=== PATIENT | female | born 1995 | race Caucasian/White ===

== ENCOUNTER 2025-01-08 02:56 | Inpatient (IN) ==
[2025-01-08] MEDS ORDERED: OXYTOCIN 30 UNITS/NSS 30 UNITS/500 ML BAG IV PRN (03:48)
[2025-01-08] MEDS ORDERED: LIDOCAINE 1% LOCAL 20 ML VIAL INFIL PRN (03:48)
[2025-01-08] MEDS: LACTATED RINGER'S 1,000 ML IV PRN (04:20)
[2025-01-08] MEDS: PENICILLIN GK 6 MU in DEXTROSE 5% 250 ML IV STA (04:21)
--- NOTE | 2025-01-08 04:34 | History & Physical Report ---
Date of Service January 08, 2025 Assessment & Plan (1) SROM (spontaneous rupture of membranes): (2) GBS (group B Streptococcus carrier), +RV culture, currently : Plan 29 yo at 38 5/7 wga presents w/ SROM VSS Fetus cat 1 Labor - will allow pt to walk, may need pit if not progressing and pt agreeable GBS+, pcn ordered epidural prn Admission and Anticipated Discharge Date Admission Date: January 08, 2025 History of Present Illness Chief Complaint: lof Primary Care Provider: Paris Padilla MD 29 yo at 38 5/7 wga presents w/ LOF since 1230 am. 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 G2 current denies hx stis Allergies Allergy/AdvReac Type Severity Reaction Status Date / Time No Known Allergies Allergy Verified 01/08/25 03:21 Home Medications Medication Instructions Recorded Confirmed Type vits no.124-ferrous fum 1 tab PO DAILY 01/08/25 01/08/25 History 27 mg iron-folic acid 800 mcg tablet ( Vitamin) Patient History Medical History (Updated 01/08/25 @ 04:33 by Alison Lora MD) GBS carrier Varicella vaccination Surgical History (Updated 01/08/25 @ 03:20 by Nati Del Cid RN) [place] teeth removed Family History Grandfather (Maternal) Colorectal cancer Mother Sjogren's disease Sister Dyslipidemia Crohn's disease Denies family history of Ovarian cancer Breast cancer Social History Smoking Status: Never smoker Do You Dip or Chew Tobacco: No; Hx Alcohol Use: No Hx Substance Use: No Preferred Language: [place] Communication Ability: Effective Wool Carder Required: No Beliefs That Will Affect Care: None marital status: marital status details: Walker Monte (28) [phone] Current Living Situation: Spouse Current Living Situation Comment: Lives with , no pets current occupational status: employed 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 Other Information That Helps Us Care for You: No Feels Safe at Home: Yes Safety Concerns: Feels Safe At This Time Assistive Devices: None Physical Exam Genitourinary: OB Exam Abdomen: + vertex Manual OB Exam: + cervical dilation (1.5), + cervical effacement 70%, + station -2 and + amniotic fluid (+nitrazine, pooling, ferning) OB Exam Monitor Tracing: + external FHT monitor used, + external uterine monitor used and + category I Results & Data Vital Signs (Past 12 Hours) Vital Signs Temp Pulse Resp BP 01/08/25 03:22 98.2 F 18 01/08/25 03:15 78 128/70 Laboratory Results OB Labs: Blood Type B Positive 07/01/24 Antibody Screen NEGATIVE 07/01/24 Hgb 10.2 g/dl (12.0-16.0) L 10/23/24 Hct 30.3 % (37.0-47.0) L 10/23/24 MCV 86.3 fL (80.0-100.0) 07/01/24 Plt Count 232 K/uL (130-400) 07/01/24 Rubella IgG Antibody Equivocal (Immune) L 07/01/24 Treponema pallidum Ab Negative (Negative) 10/23/24 Hep Bs Antigen Negative (Negative) 07/01/24 Hepatitis C Antibody Negative (Negative) 07/01/24 HIV 1&2 Ab/P24 Ag 4thGn Negative (Negative) 07/01/24 Glucose 1 Hr 50 gm 86 mg/dl (70-130) 10/23/24 OB Optional Labs: Chlamydia trachomatis RNA Not Detected (NotDetected) 07/01/24 Neisseria gonorrhoeae RNA Not Detected (NotDetected) 07/01/24 Labs Reviewed: Declines genetics--mln GBS+ Coding Level of Care Code None Diagnoses SROM (spontaneous rupture of membranes) GBS (group B Streptococcus carrier), +RV culture, currently O99.820
[2025-01-08 05:03] LABS: Hematocrit (blood only) 29.8 % (37.0-47.0); Hemoglobin 9.9 g/dl (12.0-16.0); Mean Corpuscular Hemoglobin 27.3 pg (25.0-34.0); Mean Corpuscular Hgb Conc 33.2 g/dL (32.0-36.0); Mean Corpuscular Volume 82.1 fL (80.0-100.0); Mean Platelet Volume 11.9 fL (9.4-12.4); Platelet Count 216 K/uL (130-400); RDW Coefficient of Variation 14.6 % (11.5-14.5); RDW Standard Deviation 43.4 fL (36.4-46.3); Red Blood Count 3.63 M/uL (4.20-5.40); White Blood Count 10.94 K/ul (4.8-10.8)
--- NOTE | 2025-01-08 07:32 | Labor Progress Brief Note ---
Date of Service January 08, 2025 Subjective feeling like ctx are worsening but manageable Assessment & Plan (1) SROM (spontaneous rupture of membranes): (2) GBS (group B Streptococcus carrier), +RV culture, currently : Plan 29 yo at 38 5/7 wga presents w/ SROM VSS Fetus cat 1 Labor - progress noted, will continue expectant management GBS+, pcn ordered epidural prn Admission and Anticipated Discharge Date Admission Date: January 08, 2025 Physical Exam Genitourinary: Manual OB Exam: + cervical dilation 3 cm, + cervical effacement 90% and + station -2 OB Exam Monitor Tracing: + external FHT monitor used, + external uterine monitor used and + category I Results & Data Vital Signs (Past 12 Hours) Vital Signs Temp Pulse Resp BP 01/08/25 07:02 68 125/70 01/08/25 05:40 18 01/08/25 05:40 98.2 F 18 01/08/25 03:22 98.2 F 18 01/08/25 03:15 78 128/70 Coding Level of Care Code None Diagnoses SROM (spontaneous rupture of membranes) GBS (group B Streptococcus carrier), +RV culture, currently O99.820
[2025-01-08] MEDS: PENICILLIN GK 3 MU in DEXTROSE 5% 100 ML IV PRN (08:08)
[2025-01-08] MEDS: OXYTOCIN 30 UNITS/NSS 30 UNITS/500 ML BAG IV PRN (08:59)
[2025-01-08] MEDS ORDERED: ePHEDrine sulfate 50 MG/ML AMP ONE (09:38)
[2025-01-08] MEDS ORDERED: SODIUM CHLORIDE 0.9% PF INJ 10 ML VIAL ONE (09:39)
[2025-01-08] MEDS ORDERED: SODIUM CHLORIDE 0.9% PF INJ 10 ML VIAL EPI STA (10:02)
[2025-01-08] MEDS ORDERED: ONDANSETRON INJ 2 MG/ML 2 ML VIAL IV PRN ×2 (10:02→20:44)
[2025-01-08] MEDS ORDERED: NALOXONE HCL 1 MG in SODIUM CHLORIDE 0.9% 1,000 ML IV PRN ×2 (10:02→20:44)
[2025-01-08] MEDS ORDERED: fentANYL 2 MCG/ML BUPIVacaine 0.125%-NSS 100ML BAG EPI PRN (10:02)
[2025-01-08] MEDS ORDERED: diphenhydrAMINE 50 MG/ML VIAL IV PRN (10:02)
[2025-01-08] MEDS ORDERED: BUPIVACAINE 0.25% PF 30 ML VIAL EPI PRN (10:02)
[2025-01-08] MEDS ORDERED: NALOXONE HCL 0.4 MG/1 ML VIAL/CARP IV PRN ×2 (10:02→20:44)
[2025-01-08] MEDS ORDERED: LIDOCAINE 2% MPF LOCAL 5 ML VIAL EPI PRN (10:02)
[2025-01-08] MEDS ORDERED: fentaNYL citrate PF 100 MCG/2 ML VIAL EPI PRN (10:02)
[2025-01-08] MEDS ORDERED: fentaNYL citrate PF 100 MCG/2 ML VIAL EPI STA (10:02)
[2025-01-08] MEDS ORDERED: NALBUPHINE HCL INJ 10 MG/ML AMP IV PRN ×2 (10:02→20:44)
[2025-01-08] MEDS ORDERED: ePHEDrine sulfate 50 MG/ML AMP IV PRN ×2 (10:02→20:44)
[2025-01-08] MEDS ORDERED: LIDOCAINE 2%/EPINEPHRINE 1:200,000 20 ML PF EPI STA (10:02)
[2025-01-08] MEDS ORDERED: SODIUM CHLORIDE 0.9% PF INJ 10 ML VIAL EPI PRN (10:02)
[2025-01-08] MEDS ORDERED: ROPIVACAINE 0.5% PF 5 MG/ML 20 ML VIAL EPI PRN (10:02)
[2025-01-08] MEDS ORDERED: BUPIVACAINE 0.25% PF 30 ML VIAL EPI STA (10:02)
--- NOTE | 2025-01-08 10:04 | Anesthesiology Consultation ---
Date of Service January 08, 2025 Assessment & Plan (1) Encounter for pre-operative examination: Chart Review Chart Review: Patient NOT seen in Pre Admission Testing and Acceptable Risk for Labor Epidural Consults Requested none History Height/Weight Height: 5 ft 7 in Weight: 91.172 kg Allergies Allergy/AdvReac Type Severity Reaction Status Date / Time No Known Allergies Allergy Verified 01/08/25 03:21 Medications Home Medications Medication Instructions Recorded Confirmed Last Taken vits no.124-ferrous fum 1 tab PO DAILY 01/08/25 01/08/25 01/07/25 27 mg iron-folic acid 800 mcg tablet ( Vitamin) Active Medications Generic Name Dose Route Start Last Admin Trade Name Freq PRN Reason Stop Dose Admin Lactated Ringer's 1,000 mls @ 125 mls/hr 01/08/25 03:48 01/08/25 09:38 Lr IV 01/09/25 03:47 999 mls/hr .Q8H PRN Infusion L&D Protocol Protocol Oxytocin 30 units in 500 mls @ 4 mls/hr 01/08/25 03:48 01/08/25 09:45 Pitocin 30 Units/Nss IV 01/10/25 03:47 0.24 units/hr .Q24H PRN 4 mls/hr Labor Induction/Augmentation Titration Protocol 0.24 UNITS/HR Penicillin G Potassium 3 mu/ 106 mls @ 100 mls/hr 01/08/25 06:48 01/08/25 08:08 Dextrose IV 01/18/25 06:47 100 mls/hr Q4H PRN Administration GBS(+) Until Delivery Past Medical History Medical History (Updated 01/08/25 @ 10:04 by Marcos Jimenez MD) Encounter for pre-operative examination GBS carrier Varicella vaccination Exercise / Class Metabolic Activity II 4-5 Yardwork/Stairs/Walk up hill Past Family History Family History Grandfather (Maternal) Colorectal cancer Mother Sjogren's disease Sister Dyslipidemia Crohn's disease Denies family history of Ovarian cancer Breast cancer Past Surgical History Surgical History [place] teeth removed Past Anesthesia History No Hx of Anesthesia Complications and No Family Hx of Anesthesia Complications Social History Smoking Status: Never smoker Do You Dip or Chew Tobacco: No Hx Alcohol Use: No Hx Substance Use: No substance use type: does not use Physical Exam Vital Signs Last Vital Signs Temp 36.6 C 01/08/25 09:00 Pulse 74 01/08/25 10:23 Resp 16 01/08/25 07:02 BP 116/62 01/08/25 10:23 Pulse Ox 92 01/08/25 10:23 Testing Laboratory Results 01/08/25 04:27
[2025-01-08] MEDS: fentANYL 2 MCG/ML BUPIVacaine 0.125%-NSS 100ML BAG ONE (10:28)
[2025-01-08] MEDS: fentaNYL citrate PF 100 MCG/2 ML VIAL ONE (10:28)
[2025-01-08] MEDS: LIDOCAINE 2%/EPINEPHRINE 1:200,000 20 ML PF ONE (10:28)
[2025-01-08] MEDS: BUPIVACAINE 0.25% PF 30 ML VIAL ONE (10:28)
[2025-01-08] MEDS ORDERED: PHENYLEPHRINE HCL 25 MG/250 ML NSS IV ONE ×3 (19:13→19:14)
[2025-01-08] MEDS ORDERED: DEXAMETHASONE SOD INJ 4 MG/ML VIAL ONE (19:15)
[2025-01-08] MEDS ORDERED: ONDANSETRON INJ 2 MG/ML 2 ML VIAL ONE (19:15)
[2025-01-08] MEDS ORDERED: LIDOCAINE 2%/EPINEPHRINE 1:200,000 20 ML PF ONE ×2 (19:15→20:06)
[2025-01-08] MEDS ORDERED: PHENYLEPHRINE 100MCG/ML 5ML SYR ONE ×2 (19:15→20:26)
[2025-01-08] MEDS ORDERED: MoRPHine SULFATE PF 1 MG/ML 10 ML AMP/VIAL ONE (19:35)
[2025-01-08] MEDS: AZITHROMYCIN 500 MG/255 ML BAG IV SCH (19:43)
[2025-01-08] MEDS: ceFAZolin 2000MG 2,000 MG/15 ML SYR IV SCH (19:43)
[2025-01-08] MEDS ORDERED: fentaNYL citrate PF 100 MCG/2 ML VIAL ONE (20:25)
[2025-01-08] MEDS: OXYTOCIN 20 UNITS/LR 1,002 ML IV SCH (20:30)
[2025-01-08 20:41] LABS: CO2 Cord Arterial Blood 40 mmHg (39.1-73.5); HCO3 Cord Arterial Blood 23 mmol/L (19.7-28.5); Oxygen Sat Cord Arterial Blood 70.8 % (<60); PO2 Cord Arterial Blood 31 mmHg (4.1-31.7); pH Cord Arterial Blood 7.37 (7.1-7.38)
[2025-01-08 20:42] LABS: Base Excess Cord Venous Blood 1.4 mEq/L (-7.7-1.9); Cord Venous Blood HCO3 28 mmol/L (18.4-26.8); Cord Venous Blood PCO2 51 mmHg (30.4-57.2); Cord Venous Blood PO2 < 20 mmHg (14.1-43.3); Cord Venous Blood pH 7.35 (7.20-7.44); O2 Saturation Cord Venous Bld < 60.0 % (<68)
[2025-01-08] MEDS ORDERED: HYDROmorphone INJ 0.5 MG/0.5 ML SYR IV PRN (20:44)
[2025-01-08] MEDS ORDERED: PROMETHAZINE 6.25 MG/50.25 ML BAG IV PRN (20:44)
[2025-01-08] MEDS ORDERED: oxyCODONE HCL IR 5 MG TAB (IMMEDIATE RELEASE) PO PRN (20:44)
[2025-01-08] MEDS ORDERED: MoRPHine SULFATE PF 1 MG/ML 10 ML AMP/VIAL EPI ONE (20:44)
[2025-01-08] MEDS ORDERED: NO NARCOTICS OR SEDATIVES SCH (20:45)
[2025-01-08] MEDS ORDERED: DC INTRASPINAL MORPHINE SCH (20:45)
[2025-01-08] MEDS ORDERED: SENNA 8.6 MG TAB PO PRN (21:17)
[2025-01-08] MEDS ORDERED: HYDROCORTISONE ACETATE 25 MG SUPP PR PRN (21:17)
[2025-01-08] MEDS ORDERED: CALCIUM CARBONATE 500 MG CHEWABLE TAB PO PRN (21:17)
[2025-01-08] MEDS ORDERED: DIPHTHER/TETAN/PERTUS Vaccine (Tdap, Adol/Adult) 0.5mL IM ONE (21:17)
[2025-01-08] MEDS ORDERED: MAGNESIUM HYDROXIDE SUSP 30 ML UDC PO PRN (21:17)
[2025-01-08] MEDS ORDERED: BENZOCAINE 20% SPRY 85 APPLN/85 GM CAN EXT PRN (21:17)
--- NOTE | 2025-01-08 21:22 | Operative Report ---
Post Operative Report Pre & Post Diagnosis Operation Date: 01/08/25 19:30 Pre-Op Diagnosis: 1. Term 2. Failure to descend Post-Op Diagnosis: 1. Term 2. Failure to descend 3. Delivery of live male child at 2016 I identified the patient and participated in the time-out.: Yes Procedure Operation Date: 01/08/25 19:30 Actual Procedures p Section in - Rocky Shepard MD Surgeon Rocky Shepard MD Cleater Nursing staff Quantitative Blood Loss (QBL) 962 Findings Consistent with Post-Op Diagnosis Specimens none Description of Procedure Patient was taken the operating room after consent was ensured. Upon presentation she was properly identified. Anesthesia obtained and patient prepped and draped in normal sterile fashion. Preprocedural timeout was performed. A Pfannenstiel incision was made with a knife. This was carried down to underlying fascia with the Bovie and blunt dissection. The fascia was nicked at the midline with a knife and extended laterally with blunt dissection. Abdominal cavity was entered bluntly and placed on stretch to provide adequate room for delivery. A low transverse uterine incision was made with a knife. Head of the was delivered through the hysterotomy followed by body and shoulders. The cord was double clamped and cut and taken to the waiting nursery staff. Attention was turned to delivery of the placenta which delivered intact with three-vessel cord gentle cord traction. Uterus was exteriorized and several passes were made to remove any remaining membranes with a dry lap. Hysterotomy was reapproximated with 0 Vicryl continuous running lock stitch with a second imbricating layer performed. Excellent hemostasis noted. Posterior cul-de-sac cleaned of clots and debris's. Uterus returned maternal abdomen and right left paracolic gutters cleaned of clots and debris's. Hysterotomy remained hemostatic. Subcutaneous, fascia and muscle layers inspected noted be hemostatic. Fascia was reapproximated 0 Vicryl continuous running stitch. Subcutaneous layer reapproximated 2 layers using 2-0 plain. Skin reapproximated with 3-0 Vicryl and continuous subcuticular stitch. Dermabond placed on top. Both mother and in stable condition at the completion of the case. Needle sponge and instrument counts correct at the completion of the case. No complications noted and blood loss per QBL. I attest to the content of the Intraoperative Record and any orders documented therein. Any exceptions are noted below.
[2025-01-08] MEDS ORDERED: SUCCINYLCHOLINE 100MG/5ML SYR IV ONE (21:27)
[2025-01-08] MEDS ORDERED: PROPOFOL IV EMULSION 10 MG/ML 20 ML VIAL IV ONE (21:27)
[2025-01-08] MEDS ORDERED: LACTATED RINGER'S 1,000 ML IV SCH (21:30)
--- NOTE | 2025-01-08 21:31 | Anesthesia Procedure Note ---
Date of Service January 08, 2025 Anesthesia Post Epidural Note Vital Signs Vital Signs: Temp Pulse Resp BP Pulse Ox 37.1 C 76 16 107/58 L 85 L 01/08/25 19:01 01/08/25 21:28 01/08/25 19:01 01/08/25 21:17 01/08/25 21:28 Pain Intensity Abdomen: Pain Intensity: 2 Notes Mental Status: alert / awake / arousable and participated in evaluation Patient Amnestic to Procedure: Yes Nausea / Vomiting: adequately controlled Pain: adequately controlled Airway Patency, RR, SpO2: stable & adequate BP & HR: stable & adequate Hydration State: stable & adequate Neuraxial Anesthesia: was administered and sensory block is resolving Anesthetic Complications: no major complications apparent and Pt Satisfied with anesthetic care Epidural: Removed without complications and With tip intact
--- NOTE | 2025-01-08 21:31 | Anesthesiology Progress Note ---
Date of Service January 08, 2025 Anesthesia Post Procedure Vital Signs Vital Signs: Temp Pulse Resp BP Pulse Ox 01/08/25 21:28 76 85 L 01/08/25 21:26 73 100 01/08/25 21:21 75 100 01/08/25 21:17 81 107/58 L 01/08/25 21:16 83 100 01/08/25 19:38 81 100 01/08/25 19:37 92 H 130/60 01/08/25 19:33 84 99 01/08/25 19:28 82 100 01/08/25 19:23 84 121/66 97 01/08/25 19:18 90 95 01/08/25 19:13 79 99 01/08/25 19:08 98 01/08/25 19:08 82 01/08/25 19:08 77 131/58 L 01/08/25 19:03 86 99 01/08/25 19:01 16 01/08/25 19:01 37.1 C 16 01/08/25 19:00 20 01/08/25 19:00 20 01/08/25 18:58 98 H 98 01/08/25 18:53 108 H 98 01/08/25 18:48 125 H 99 01/08/25 18:43 106 H 100 01/08/25 18:38 115 H 96 01/08/25 18:37 95 H 130/60 01/08/25 18:33 105 H 98 01/08/25 18:30 20 01/08/25 18:30 20 01/08/25 18:28 113 H 99 01/08/25 18:23 136 H 94 01/08/25 18:22 87 119/57 L 01/08/25 18:18 83 98 01/08/25 18:13 92 H 98 01/08/25 18:08 98 01/08/25 18:08 86 01/08/25 18:08 104 H 91 01/08/25 18:07 88 117/64 01/08/25 18:03 101 H 99 01/08/25 18:00 16 01/08/25 18:00 16 01/08/25 17:58 88 92 01/08/25 17:54 96 H 91 01/08/25 17:53 99 01/08/25 17:53 96 H 01/08/25 17:53 79 112/55 L 01/08/25 17:48 101 H 99 01/08/25 17:43 102 H 98 01/08/25 17:38 84 115/58 L 98 01/08/25 17:36 87 87 L 01/08/25 17:33 88 98 01/08/25 17:30 93 H 20 94 01/08/25 17:28 89 98 01/08/25 17:24 98 H 91 01/08/25 17:23 96 H 130/57 L 100 01/08/25 17:18 97 01/08/25 17:18 106 H 01/08/25 17:18 99 H 88 L 01/08/25 17:13 104 H 99 01/08/25 17:11 108 H 87 L 01/08/25 17:08 102 H 99 01/08/25 17:07 93 H 116/60 01/08/25 17:06 108 H 94 01/08/25 17:05 37.0 C 01/08/25 17:03 90 99 01/08/25 17:00 16 01/08/25 17:00 16 01/08/25 16:58 100 01/08/25 16:58 78 01/08/25 16:58 90 92 01/08/25 16:53 100 01/08/25 16:53 87 01/08/25 16:53 86 116/59 L 01/08/25 16:52 71 114/64 01/08/25 16:48 79 100 01/08/25 16:43 74 100 01/08/25 16:42 79 92 01/08/25 16:39 70 112/63 01/08/25 16:38 71 100 01/08/25 16:33 74 98 01/08/25 16:30 16 01/08/25 16:30 16 01/08/25 16:29 80 92 01/08/25 16:28 76 99 01/08/25 16:23 69 98 01/08/25 16:22 67 112/62 01/08/25 16:18 74 100 01/08/25 16:16 83 90 01/08/25 16:13 78 100 01/08/25 16:08 76 99 01/08/25 16:07 77 82/54 L 01/08/25 16:00 16 01/08/25 16:00 16 01/08/25 15:58 74 100 01/08/25 15:53 73 104/52 L 99 01/08/25 15:48 73 99 01/08/25 15:43 79 100 01/08/25 15:38 71 100 01/08/25 15:37 69 103/59 L 01/08/25 15:33 74 100 01/08/25 15:32 92 H 92 01/08/25 15:30 16 01/08/25 15:30 16 01/08/25 15:28 99 H 98 01/08/25 15:24 89 87 L 01/08/25 15:23 86 99 01/08/25 15:18 95 H 85 L 01/08/25 15:13 77 100 01/08/25 15:11 77 92 01/08/25 15:08 77 100 01/08/25 15:07 73 102/64 01/08/25 15:06 100 H 90 01/08/25 15:03 75 85 L 01/08/25 15:00 20 01/08/25 15:00 36.8 C 20 01/08/25 14:59 73 90 01/08/25 14:58 77 100 01/08/25 14:55 83 95/65 L 01/08/25 14:53 82 100 01/08/25 14:48 112 H 99 01/08/25 14:43 100 01/08/25 14:43 95 H 01/08/25 14:43 92 H 88 L 01/08/25 14:38 100 H 94 01/08/25 14:37 129 H 103/63 01/08/25 14:36 82 90 01/08/25 14:33 86 100 01/08/25 14:30 20 01/08/25 14:30 20 01/08/25 14:27 84 82 L 01/08/25 14:25 84 87 L 01/08/25 14:24 86 116/56 L 01/08/25 14:22 83 98 01/08/25 14:20 95 H 83 L 01/08/25 14:17 81 100 01/08/25 14:14 94 H 94 01/08/25 14:12 88 98 01/08/25 14:08 79 110/72 01/08/25 14:07 80 86 L 01/08/25 14:02 62 100 01/08/25 14:00 16 01/08/25 14:00 16 01/08/25 13:57 70 98 01/08/25 13:53 76 107/55 L 01/08/25 13:52 73 100 01/08/25 13:47 84 100 01/08/25 13:42 85 100 01/08/25 13:40 68 92 01/08/25 13:37 100 01/08/25 13:37 68 01/08/25 13:37 69 93/54 L 01/08/25 13:32 66 100 01/08/25 13:31 36.6 C 01/08/25 13:30 16 01/08/25 13:30 16 01/08/25 13:27 59 L 100 01/08/25 13:23 72 92 01/08/25 13:22 74 85/53 L 100 01/08/25 13:18 62 90 01/08/25 13:17 78 100 01/08/25 13:12 76 100 01/08/25 13:11 76 91 01/08/25 13:07 85 110/59 L 100 01/08/25 13:04 81 92 01/08/25 13:02 83 99 01/08/25 12:59 76 92 01/08/25 12:57 75 100 01/08/25 12:53 76 118/69 93 01/08/25 12:52 76 100 01/08/25 12:47 69 100 01/08/25 12:43 80 88 L 01/08/25 12:42 82 100 01/08/25 12:37 98 01/08/25 12:37 68 01/08/25 12:37 69 117/62 01/08/25 12:32 76 100 01/08/25 12:27 79 100 01/08/25 12:22 83 118/60 99 01/08/25 12:17 88 100 01/08/25 12:12 77 100 01/08/25 12:07 100 01/08/25 12:07 82 01/08/25 12:07 81 117/63 01/08/25 12:02 78 98 01/08/25 12:00 16 01/08/25 12:00 16 01/08/25 11:57 83 99 01/08/25 11:52 78 114/63 99 01/08/25 11:47 73 99 01/08/25 11:42 78 98 01/08/25 11:38 75 108/59 L 01/08/25 11:37 82 100 01/08/25 11:32 85 100 01/08/25 11:30 16 01/08/25 11:30 16 01/08/25 11:27 81 99 01/08/25 11:22 78 117/66 99 01/08/25 11:17 80 99 01/08/25 11:12 77 100 01/08/25 11:07 74 100 01/08/25 11:02 100 01/08/25 11:02 80 01/08/25 11:02 78 109/61 01/08/25 11:00 16 01/08/25 11:00 36.6 C 16 01/08/25 10:57 100 01/08/25 10:57 79 01/08/25 10:57 89 111/65 01/08/25 10:52 78 115/79 99 01/08/25 10:47 74 98 01/08/25 10:45 75 112/60 01/08/25 10:43 75 112/59 L 01/08/25 10:42 73 98 01/08/25 10:41 71 116/62 01/08/25 10:39 72 118/63 01/08/25 10:37 71 115/63 97 01/08/25 10:35 73 118/63 01/08/25 10:33 75 18 115/62 01/08/25 10:32 80 100 01/08/25 10:31 67 120/63 01/08/25 10:29 75 16 115/65 01/08/25 10:27 66 100 01/08/25 10:26 71 16 114/67 01/08/25 10:25 68 116/62 01/08/25 10:23 92 01/08/25 10:23 74 01/08/25 10:23 77 116/62 01/08/25 10:22 72 100 01/08/25 10:17 74 100 01/08/25 10:13 76 114/72 01/08/25 10:12 70 100 01/08/25 10:11 77 92 01/08/25 10:07 76 100 01/08/25 10:02 65 100 04/23/25 09:58 73 115/73 01/08/25 09:57 80 100 01/08/25 09:52 100 01/08/25 09:52 79 01/08/25 09:52 80 90 01/08/25 09:47 81 100 01/08/25 09:43 74 118/66 01/08/25 09:42 76 100 01/08/25 09:37 68 100 01/08/25 09:32 69 100 01/08/25 09:14 69 118/67 01/08/25 09:00 36.6 C 01/08/25 08:58 73 129/73 01/08/25 07:02 36.3 C L 68 16 125/70 01/08/25 05:40 18 01/08/25 05:40 36.8 C 18 01/08/25 03:22 36.8 C 18 01/08/25 03:15 78 128/70 Pain Intensity Abdomen: Pain Intensity: 2 Transfer of Care Handoff Completed per policy Notes Mental Status: alert / awake / arousable and participated in evaluation Patient Amnestic to Procedure: Yes Nausea / Vomiting: adequately controlled Pain: adequately controlled Airway Patency, RR, SpO2: stable & adequate BP & HR: stable & adequate Hydration State: stable & adequate Anesthetic Complications: no major complications apparent and Pt Satisfied with anesthetic care
[2025-01-08] MEDS: KETOROLAC 30 MG/ML VIAL IV SCH (21:48)
[2025-01-08] MEDS: ACETAMINOPHEN 325 MG TAB PO SCH (21:48)
[2025-01-09] MEDS ORDERED: SODIUM CHLORIDE 0.9% 100 ML IV PRN (00:19)
[2025-01-09] MEDS ORDERED: diphenhydrAMINE 50 MG/ML VIAL ONE (04:53)
[2025-01-09] MEDS: diphenhydrAMINE 50 MG/ML VIAL IV PRN (04:55)
[2025-01-09 07:36] LABS: Hematocrit (blood only) 24.7 % (37.0-47.0); Hemoglobin 8.3 g/dl (12.0-16.0)
--- NOTE | 2025-01-09 07:37 | Obstetrical Progress Note ---
Date of Service <Adan Mosher MD - Last Filed: 01/09/25 08:08> January 09, 2025 Assessment & Plan <Adan Mosher MD - Last Filed: 01/09/25 08:08> (1) care and examination: (2) GBS (group B Streptococcus carrier), +RV culture, currently : Plan POD#1 s/p pLTCS at 38+ wga d/t failure to descend Rh+, gbs pos s/p pcn, rubella equiv, vss, h/h noted Continue routine care, diet as tolerated Work on OOB and ambulation, bowel & bladder fxn, pain control Possible d/c tomorrow <Rocky Shepard MD - Last Filed: 01/09/25 08:58> (1) care and examination: (2) GBS (group B Streptococcus carrier), +RV culture, currently : Subjective <Adan Mosher MD - Last Filed: 01/09/25 08:08> Patient is a 29yo who is POD#1 following LTCS at 38 5/7 weeks. Abd pain/cramping is mild & well managed on analgesics Tolerating meals +passing gas Baker out but has no voiding trial yet Has been OOB/to EOB but not yet ambulating independently Lochia appropriate, diminishing Planning to breastfeed. Constitutional: no fever, no chills or no sweats Respiratory: no dyspnea Cardiovascular: no chest pain, no palpitations or no calf pain Breast: no breast pain Gastrointestinal: no nausea or no vomiting Genitourinary (female): no dysuria Neurologic: no headache(s) no changes in vision, no headaches Physical Exam <Adan Mosher MD - Last Filed: 01/09/25 08:08> General: Alert, oriented. No acute distress. Cardiac: Regular rate and rhythm, no murmurs, rubs, or gallops. Respiratory: Clear to auscultation bilaterally. No increased work of breathing. Symmetrical chest rise. No respiratory distress. Abdomen: Soft, nontender, nondistended. Bowel sounds present. Uterus: Uterine fundus firm, nontender, palpable 1 cm below the umbilicus. Surgical scar clean and healing well. Lower extremities: No lower extremity edema or swelling. No deep calf pain. Results & Data <Adan Mosher MD - Last Filed: 01/09/25 08:08> Vital Signs (Past 12 Hours) Vital Signs Temp Pulse Pulse Resp BP BP Pulse Ox 01/09/25 06:15 18 93 01/09/25 05:15 18 96 01/09/25 04:15 16 96 01/09/25 04:00 36.8 C 67 16 109/69 99 01/09/25 03:15 16 97 01/09/25 02:15 18 96 01/09/25 01:15 16 96 01/09/25 00:30 18 97 01/09/25 00:30 36.6 C 76 18 105/64 97 01/08/25 23:30 16 96 01/08/25 23:30 36.7 C 66 16 117/70 96 01/08/25 23:23 68 115/58 L 01/08/25 23:21 73 98 01/08/25 23:20 71 121/54 L 01/08/25 23:16 74 98 01/08/25 23:11 65 99 01/08/25 23:10 66 118/62 01/08/25 23:06 62 98 01/08/25 23:01 69 99 01/08/25 23:00 61 118/62 01/08/25 22:56 74 99 01/08/25 22:51 66 98 01/08/25 22:50 69 112/61 01/08/25 22:47 16 01/08/25 22:46 68 99 01/08/25 22:41 67 99 01/08/25 22:40 64 110/62 01/08/25 22:36 76 98 01/08/25 22:31 98 01/08/25 22:31 70 01/08/25 22:31 67 116/65 01/08/25 22:26 74 98 01/08/25 22:21 74 85/52 L 98 01/08/25 22:17 36.5 C 16 01/08/25 22:16 76 98 01/08/25 22:11 71 113/69 100 01/08/25 22:07 16 01/08/25 22:06 69 100 01/08/25 22:01 99 01/08/25 22:01 73 01/08/25 22:01 79 102/52 L 01/08/25 21:57 16 01/08/25 21:56 75 99 01/08/25 21:51 73 100 01/08/25 21:50 88 110/57 L 01/08/25 21:47 16 01/08/25 21:46 76 100 01/08/25 21:45 79 91 01/08/25 21:41 71 100 01/08/25 21:40 78 113/53 L 01/08/25 21:37 16 01/08/25 21:36 78 100 01/08/25 21:35 75 116/63 01/08/25 21:33 83 93 01/08/25 21:31 82 100 01/08/25 21:28 76 85 L 01/08/25 21:27 16 01/08/25 21:26 73 100 01/08/25 21:21 75 100 01/08/25 21:17 36.5 C 16 01/08/25 21:17 81 107/58 L 01/08/25 21:16 83 100 01/08/25 19:38 81 100 01/08/25 19:37 92 H 130/60 01/08/25 19:33 84 99 01/08/25 19:28 82 100 01/08/25 19:23 84 121/66 97 01/08/25 19:18 90 95 01/08/25 19:13 79 99 O2 Del Method 01/09/25 06:15 01/09/25 05:15 01/09/25 04:15 01/09/25 04:00 Room Air 01/09/25 03:15 01/09/25 02:15 01/09/25 01:15 01/09/25 00:30 01/09/25 00:30 Room Air 01/08/25 23:30 01/08/25 23:30 Room Air 01/08/25 23:23 01/08/25 23:21 01/08/25 23:20 01/08/25 23:16 01/08/25 23:11 01/08/25 23:10 01/08/25 23:06 01/08/25 23:01 01/08/25 23:00 01/08/25 22:56 01/08/25 22:51 01/08/25 22:50 01/08/25 22:47 01/08/25 22:46 01/08/25 22:41 01/08/25 22:40 01/08/25 22:36 01/08/25 22:31 01/08/25 22:31 01/08/25 22:31 01/08/25 22:26 01/08/25 22:21 01/08/25 22:17 01/08/25 22:16 01/08/25 22:11 01/08/25 22:07 01/08/25 22:06 01/08/25 22:01 01/08/25 22:01 01/08/25 22:01 01/08/25 21:57 01/08/25 21:56 01/08/25 21:51 01/08/25 21:50 01/08/25 21:47 01/08/25 21:46 01/08/25 21:45 01/08/25 21:41 01/08/25 21:40 01/08/25 21:37 01/08/25 21:36 01/08/25 21:35 01/08/25 21:33 01/08/25 21:31 01/08/25 21:28 01/08/25 21:27 01/08/25 21:26 01/08/25 21:21 01/08/25 21:17 01/08/25 21:17 01/08/25 21:16 01/08/25 19:38 01/08/25 19:37 01/08/25 19:33 01/08/25 19:28 01/08/25 19:23 01/08/25 19:18 01/08/25 19:13 Laboratory Results 01/09/25 06:56 Supervising Physician <Rocky Shepard MD - Last Filed: 01/09/25 08:58> Co-Signing Physician Notes Patient seen with resident and agree with the above findings and plan. Awaiting spontaneous void. Resident Activity Tracking <Adan Mosher MD - Last Filed: 01/09/25 08:08> Resident Involvement: Resident Care Provided Care Provided: Adult Hospital Medicine and OB Delivery
[2025-01-09] MEDS: SIMETHICONE 80 MG CHEW PO SCH (09:23)
[2025-01-09] MEDS: PRENATAL VITAMIN 1 TAB PO SCH (09:23)
[2025-01-09] MEDS: DOCUSATE SODIUM 100 MG CAP PO SCH (09:23)
[2025-01-09] MEDS: FERROUS SULFATE 325 MG TAB PO SCH (09:23)
[2025-01-09] MEDS: NALOXONE HCL 0.08 MG in SYRINGE 1.8 ML IV PRN (11:29)
[2025-01-09] MEDS ORDERED: diphenhydrAMINE Capsule 25 MG CAP PO PRN (14:44)
[2025-01-09] MEDS ORDERED: diphenhydrAMINE 50 MG/ML VIAL IV PRN (14:44)
[2025-01-09] MEDS ORDERED: PROMETHAZINE 12.5 MG/50.5 ML BAG IV PRN (14:44)
[2025-01-09] MEDS ORDERED: HYDROmorphone INJ 0.5 MG/0.5 ML SYR IV PRN (14:44)
[2025-01-09] MEDS ORDERED: oxyCODONE HCL IR 5 MG TAB (IMMEDIATE RELEASE) PO PRN (14:44)
[2025-01-09] MEDS ORDERED: ONDANSETRON INJ 2 MG/ML 2 ML VIAL IV PRN (14:44)
[2025-01-09] MEDS: bisacodyL 5 MG TABEC PO SCH (19:42)
[2025-01-09] MEDS ORDERED: KETOROLAC 30 MG/ML VIAL IV PRN (22:00)
[2025-01-09] MEDS: IBUPROFEN 600 MG TAB PO SCH (22:26)
[2025-01-10] MEDS ORDERED: DEXTROSE 10% 250 ML BAG IV ONE (00:30)
--- NOTE | 2025-01-10 07:05 | Obstetrical Progress Note ---
Date of Service <Adan Mosher MD - Last Filed: 01/10/25 07:34> January 10, 2025 Assessment & Plan <Adan Mosher MD - Last Filed: 01/10/25 07:34> (1) care and examination: Plan POD#2 s/p pLTCS at 38+ wga d/t failure to descend Rh+, gbs pos s/p pcn, rubella equiv, vss, h/h noted Continue routine care, diet as tolerated, OOB and ambulation Plan for DC once cleared by Peds <Grace Marin MD, FACOG - Last Filed: 01/10/25 07:37> (1) care and examination: Plan POD#2 s/p pLTCS at 38+ wga d/t failure to descend Rh+, rubella equiv--MMR given, vss, h/h noted Continue routine care, diet as tolerated, OOB and ambulation Plan for DC once cleared by Peds Subjective <Adan Mosher MD - Last Filed: 01/10/25 07:34> Patient is a 29yo who is POD#2 following LTCS at 38 5/7 weeks. Abd pain/cramping is mild & well managed on analgesics Tolerating meals +passing gas Voiding normally Has been ambulating independently Lochia appropriate, diminishing Planning to breastfeed. Constitutional: no fever, no chills or no sweats Respiratory: no dyspnea Cardiovascular: no chest pain, no palpitations or no calf pain Breast: no breast pain Gastrointestinal: no nausea or no vomiting Genitourinary (female): no dysuria Neurologic: no headache(s) no changes in vision, no headaches Physical Exam <Adan Mosher MD - Last Filed: 01/10/25 07:34> General: Alert, oriented. No acute distress. Cardiac: Regular rate and rhythm, no murmurs, rubs, or gallops. Respiratory: Clear to auscultation bilaterally. No increased work of breathing. Symmetrical chest rise. No respiratory distress. Abdomen: Soft, nontender, nondistended. Bowel sounds present. Uterus: Uterine fundus firm, nontender, palpable 1 cm below the umbilicus. Surgical scar clean and healing well. Lower extremities: No lower extremity edema or swelling. No deep calf pain. Results & Data <Adan Mosher MD - Last Filed: 01/10/25 07:34> Vital Signs (Past 12 Hours) Vital Signs Temp Pulse Resp BP Pulse Ox O2 Del Method 01/10/25 03:10 36.6 C 83 18 102/63 99 Room Air 01/09/25 19:45 36.8 C 87 18 108/71 100 Room Air Supervising Physician <Grace Marin MD, FACOG - Last Filed: 01/10/25 07:37> Co-Signing Physician Notes Resident Physician Supervision Note: I was present with Dr. Mosher during the history and exam. I discussed the case with the resident and agree with the findings and plan as documented in the note. Any exceptions or clarifications are listed here: stable, doing well. baby in INBN due to glucoses. eating, voiding, ambulating. abd soft ff 2 down incision c/d/i, ext nt calves. pod #2 s/p c/s routine care. hgb 8.3. Documented By: Grace Marin MD, FACOG Resident Activity Tracking <Adan Mosher MD - Last Filed: 01/10/25 07:34> Resident Involvement: Resident Care Provided Care Provided: Adult Hospital Medicine and OB Delivery
[2025-01-10] MEDS ORDERED: MEASLES, MUMPS & RUBELLA VIRUS VACCINE (MMR) 0.5ML VIAL SQ ONE (11:41)
[2025-01-10] MEDS ORDERED: Nursing to Pharmacy Communication SCH (20:15)
[2025-01-10] MEDS: ACETAMINOPHEN 325 MG TAB PO PRN (21:05)
[2025-01-10] MEDS ORDERED: bisacodyL 10 MG SUPP PR PRN (21:17)
[2025-01-10] MEDS: MEASLES, MUMPS & RUBELLA VIRUS VACCINE (MMR) 0.5ML VIAL SQ ONE (21:19)
[2025-01-11] MEDS: IBUPROFEN 600 MG TAB PO PRN (00:09)
[2025-01-11 01:51] VITALS: RESP 18; TEMP 97.7; O2SAT 99
--- NOTE | 2025-01-11 07:48 | Obstetrical Progress Note ---
Date of Service January 11, 2025 Assessment & Plan (1) care and examination: satisfactory exam ready for discharge today. will send script for percocet to pharmacy Subjective Ambulation: ambulating normally Voiding: no voiding problems Passing Gas:: Yes Diet Tolerance:: regular diet Lochia:: Small Feeding Type:: breast feeding pain controlled for most part with current Tyleno/ Motrin regimen. Review of Systems All systems reviewed & are unremarkable except as noted in HPI & below Results & Data Vital Signs (Past 12 Hours) Vital Signs Temp Pulse Resp BP Pulse Ox O2 Del Method 01/11/25 00:00 97.7 F 89 18 99/61 L 99 Room Air
[2025-01-11 08:26] VITALS: BP 117/75; PULSE 77
[2025-01-11] MEDS ORDERED: oxyCODONE HCL IR 5 MG TAB (IMMEDIATE RELEASE) PO PRN (09:25)
== END 2025-01-11 14:30 | disposition home or self-care (01) | DRG 787 ==
LOC: OPB 02:56 → 4S1 03:08 → 4E2 01-09 00:01